=== PATIENT | male | born 1950 | race Caucasian/White ===

== ENCOUNTER 2018-04-03 06:27 | Emergency (ER) | payer BC, MEDICARE ==
[~2018-04-03] VITALS: Ht 175.3 cm; Wt 86.2 kg
[2018-04-03 06:40] VITALS: BP 113/67
[2018-04-03] MEDS ORDERED: OXYMETAZOLINE 0.05% NASAL SPRAY 30ML BOTTLE. NS ONE (06:45)
[2018-04-03 06:58] LABS: BASO % 1 % (0-3); EOS # 0.3 x10^3/uL (0.0-0.7); EOS % 5 % (0-3); HEMATOCRIT 29.1 % (39.0-53.0); HEMOGLOBIN 9.7 g/dL (13.0-17.5); LYMPH # 0.8 x10^3/uL (1.0-4.8); LYMPH % 13 % (24-48); MEAN CORPUSCULAR HEMOGLOBIN 29 pg (25-35); MEAN CORPUSCULAR HGB CONC 33 g/dL (31-37); MEAN CORPUSCULAR VOLUME 86 fL (79-100); MONO # 0.4 x10^3/uL (0.0-1.1); MONO % 6 % (0-9); NEUT # 4.6 x10^3uL (1.8-7.7); NEUT % 75 % (31-73); PLATELET COUNT 119 x10^3/uL (140-400); RED BLOOD COUNT 3.37 x10^6/uL (4.30-5.70); RED CELL DISTRIBUTION WIDTH 17.3 % (11.5-14.5); WHITE BLOOD COUNT 6.1 x10^3/uL (4.0-11.0)
[2018-04-03 07:05] LABS: CALCIUM 9.5 mg/dL (8.5-10.1); CREATININE 1.3 mg/dL (0.7-1.3); GFR 55.2; POTASSIUM 3.8 mmol/L (3.5-5.1)
[2018-04-03 07:10] LABS: ALBUMIN 3.2 g/dL (3.4-5.0); DIRECT BILIRUBIN 0.3 mg/dL (0.0-0.2); TOTAL BILIRUBIN 0.6 mg/dL (0.2-1.0); TOTAL PROTEIN 8.1 g/dL (6.4-8.2)
[2018-04-03 07:22] LABS: PROTHROMBIN TIME PATIENT 17.2 SEC (11.7-14.0)
[2018-04-03] MEDS ORDERED: COCAINE 4% TOPICAL SOLUTION TP ONE (07:30)
[2018-04-03] MEDS ORDERED: LIDOCAINE 2% JELLY 6ML IN APPLICATOR. MM ONE (07:30)
--- NOTE | 2018-04-03 07:41 | PHYS DOC ---
Past Medical History Past Medical History: CAD, High Cholesterol Additional Past Medical Histor: dysphagia, gastric tube, AICD, CAD, CABG Past Surgical History: Pacemaker Alcohol Use: None Drug Use: None Adult General Chief Complaint Chief Complaint: NOSEBLEED HPI HPI Patient is a 67 year old male who presents with nose bleed. Patient was referred to this ER from an acute rehabilitation center. He had onset of bleeding from the right side of his nose that started around 4:00 this morning. The patient states the bleeding has been difficult to control and has stopped and restarted several times. The patient does take Coumadin. He denies prior history of bleeding from the nose that lasted this long. detention staff became concerned and sent the patient to the ER. He denies any additional complaints. Review of Systems Review of Systems Constitutional: Denies fever or chills Eyes: Denies change in visual acuity HENT: Denies nasal congestion Respiratory: Denies cough or shortness of breath Cardiovascular: No additional information not addressed in HPI Musculoskeletal: Denies back pain Integument: Denies rash or skin lesions Neurologic: Denies headache Endocrine: Denies polyuria All other systems were reviewed and found to be within normal limits, except as documented in this note. Current Medications Current Medications Current Medications Medications (Trade) Dose Ordered Sig/Prateek Start Time Stop Time Status Last Admin Dose Admin Amoxicillin/ Clavulanate Potassium (Augmentin 875/ 125mg) 1 tab 1X ONCE 04/03/18 10:00 04/03/18 10:02 DC Cocaine HCl 4 ml 1X ONCE 04/03/18 07:30 04/03/18 07:34 DC Lidocaine HCl (Glydo (Lidocaine) Jelly) 1 masood 1X ONCE 04/03/18 07:30 04/03/18 07:34 DC Oxymetazoline HCl (Afrin) 2 spray 1X ONCE 04/03/18 06:45 04/03/18 06:54 DC 04/03/18 06:49 2 SPRAY Sodium Chloride 1,000 ml @ 1,000 mls/hr 1X ONCE 04/03/18 08:00 04/03/18 08:59 DC 04/03/18 08:00 1,000 MLS/HR Allergies Allergies Allergies Coded Allergies Type Severity Reaction Last Updated Verified Ndiwrhl-Ajm-Pql Reductase Inhibitor Allergy Intermediate 04/03/18 Yes Physical Exam Physical Exam Constitutional: Well developed, well nourished, no acute distress, non-toxic appearance HENT: Normocephalic, atraumatic, bilateral external ears normal, oropharynx moist, no visible source for bleeding in the anterior portion of the nose. There is a slow trickle of blood noted down the posterior oral pharynx Eyes: PERRLA, EOMI, normal conjunctiva Neck: Normal range of motion, no tenderness Cardiovascular:Heart rate regular rhythm, no murmur Lungs & Thorax: Bilateral breath sounds clear to auscultation Skin: Warm, dry, no erythema, no rash Extremities: No edema Neurologic: Alert and oriented X 3 Psychologic: Affect normal Current Patient Data Vital Signs Vital Signs Date Time Temp Pulse Resp B/P (MAP) Pulse Ox O2 Delivery O2 Flow Rate FiO2 04/03/18 06:40 98.2 68 20 113/67 (82) 98 Nasal Cannula 2.0 98.2 Lab Values Laboratory Tests Test 04/03/18 06:41 White Blood Count 6.1 x10^3/uL (4.0-11.0) Red Blood Count 3.37 x10^6/uL (4.30-5.70) L Hemoglobin 9.7 g/dL (13.0-17.5) L Hematocrit 29.1 % (39.0-53.0) L Mean Corpuscular Volume 86 fL (79-100) Mean Corpuscular Hemoglobin 29 pg (25-35) Mean Corpuscular Hemoglobin Concent 33 g/dL (31-37) Red Cell Distribution Width 17.3 % (11.5-14.5) H Platelet Count 119 x10^3/uL (140-400) L Neutrophils (%) (Auto) 75 % (31-73) H Lymphocytes (%) (Auto) 13 % (24-48) L Monocytes (%) (Auto) 6 % (0-9) Eosinophils (%) (Auto) 5 % (0-3) H Basophils (%) (Auto) 1 % (0-3) Neutrophils # (Auto) 4.6 x10^3uL (1.8-7.7) Lymphocytes # (Auto) 0.8 x10^3/uL (1.0-4.8) L Monocytes # (Auto) 0.4 x10^3/uL (0.0-1.1) Eosinophils # (Auto) 0.3 x10^3/uL (0.0-0.7) Basophils # (Auto) 0.0 x10^3/uL (0.0-0.2) Prothrombin Time 17.2 SEC (11.7-14.0) H Prothrombin Time INR 1.5 (0.8-1.1) H PTT 36 SEC (24-38) Sodium Level 133 mmol/L (136-145) L Potassium Level 3.8 mmol/L (3.5-5.1) Chloride Level 92 mmol/L (98-107) L Carbon Dioxide Level 37 mmol/L (21-32) H Anion Gap 4 (6-14) L Blood Urea Nitrogen 64 mg/dL (8-26) H Creatinine 1.3 mg/dL (0.7-1.3) Estimated GFR (Cockcroft-Gault) 55.2 Glucose Level 122 mg/dL (70-99) H Calcium Level 9.5 mg/dL (8.5-10.1) Total Bilirubin 0.6 mg/dL (0.2-1.0) Direct Bilirubin 0.3 mg/dL (0.0-0.2) H Aspartate Amino Transferase (AST) 45 U/L (15-37) H Alanine Aminotransferase (ALT) 50 U/L (16-63) Alkaline Phosphatase 322 U/L (46-116) H Total Protein 8.1 g/dL (6.4-8.2) Albumin 3.2 g/dL (3.4-5.0) L Laboratory Tests 04/03/18 06:41 Laboratory Tests 04/03/18 06:41 EKG EKG [] Radiology/Procedures Radiology/Procedures [] Course & Med Decision Making Course & Med Decision Making Pertinent Labs and Imaging studies reviewed. (See chart for details) Patient is seen on arrival to his room. Afrin was sprayed into the right nostril after having the patient blow his nose. There was a moderate amount of clot tissue during this exercise. No atul bleeding. Following this, merocel packing was placed in the right nostril although the patient's anatomy made it difficult to place the packing completely. Plan is to observe for results. Labs also ordered. 10:00: Patient was observed for several hours in the emergency department for rebleeding. He had a Merocel packing placed. The packing did saturate with blood but hemostasis was ultimately attained. The patient had a BMP that was consistent with some dehydration. He was given 1 L of normal saline in the emergency department. There is no current ENT coverage at this facility. Plan is to refer the patient back to the acute rehabilitation center where he came from. We did make contact with the rehabilitation center and described to them that there is possibility for rebleeding. If this should occur, the recommendation is that the patient be taken to [facility] where there is ENT coverage. His hemoglobin was 9.7 today. There is no old for comparison. Of note, his INR was 1.5, subtherapeutic for his atrial fibrillation. detention staff were notified of this lab result. Dragon Disclaimer Dragon Disclaimer This electronic medical record was generated, in whole or in part, using a voice recognition dictation system. Departure Departure Referrals: CLAUDIA MEADOWS MD (PCP) Scripts Amoxicillin/Potassium Clav (AUGMENTIN 875-125 TABLET) 1 Each Tablet 1 TAB PO BID, #20 TAB Prov: HERNANDO ALEJANDRO DO 04/03/18 HERNANDO ALEJANDRO DO Apr 03, 2018 07:41
[2018-04-03] MEDS ORDERED: IV NORMAL SALINE 1000ML BAG 1,000 ML IV ONE (08:00)
[2018-04-03] MEDS ORDERED: AMOX1TAB61 PO (09:56)
[2018-04-03] MEDS ORDERED: AMOXICILLIN/K CLAV 875/125MG TABLET. PO ONE (10:00)
== END 2018-04-03 10:01 | disposition home or self-care (01) ==
LOC: ER 06:27
DX: R04.0 Epistaxis (principal); E78.00 Pure hypercholesterolemia, unspecified; I25.10 Atherosclerotic heart disease of native coronary artery without angina pectoris; Z95.1 Presence of aortocoronary bypass graft; Z95.810 Presence of automatic (implantable) cardiac defibrillator; Z88.8 Allergy status to other drugs, medicaments and biological substances
CPT/HCPCS: 30901; 36415; 80048; 80076; 85025; 85610; 85730; 99284; J7030